=== PATIENT | female | born 1950 | race Caucasian/White ===

== ENCOUNTER → 2016-09-11 | Outpatient (CLI) | payer BC, MEDICARE | LOC: MW.CHFP 08:53 | PROVIDERS: ATTEND Family Medicine | DX: E66.9 Obesity, unspecified (principal); K59.09 Other constipation | CPT/HCPCS: 36415; 84443 ==

== ENCOUNTER 2018-02-22 08:03 | Observation (INO) | payer MEDICARE ==
[2018-02-22] MEDS ORDERED: Albuterol/Ipratropium 3.0-0.5 MG/3 ML Neb Soln NEB ONE (08:24)
[2018-02-22] MEDS ORDERED: Aspirin 81 MG Tab.Chew PO ONE (08:24)
[2018-02-22] MEDS ORDERED: methylPREDNISolone Sodium Succinate 125 MG/2 ML SDV IVPUSH ONE (08:24)
[2018-02-22] MEDS ORDERED: Albuterol/Ipratropium 3.0-0.5 MG/3 ML Neb Soln ONE (08:25)
--- NOTE | 2018-02-22 08:30 | EDM.PDOC ---
<Desi Reddy - Last Filed: 02/22/18 09:41> ED HPI GENERAL MEDICAL PROBLEM - General Chief Complaint: Respiratory Problem Stated Complaint: CHEST PAINS Time Seen by Provider: 02/22/18 08:09 - History of Present Illness INITIAL COMMENTS - FREE TEXT/NARRATIVE: HISTORY AND PHYSICAL: History of present illness: The patient is a 67-year-old female with past history of COPD who presents to the ER with shortness of breath for the past 2 weeks with associated cough, fever and chills. The patient has Symbicort and albuterol inhalers but does not take the Symbicort on a regular basis instead uses the albuterol multiple times a day. She's also been using nebulizer treatments as well, eight times a day. Also, for the past week she's had intermittent chest pain that she describes as sharp, jabbing that radiates to the left arm. These episodes last for minutes. She has taken nitroglycerin several times with relief. Her last nitroglycerin was this morning prior to arrival. She denies any history of VT. She is unsure why she was prescribed nitroglycerin. She didn't follow-up with the evaporator helper as recommended. [] Review of systems: As per history of present illness and below otherwise all systems reviewed and negative. Past medical history: As per history of present illness and as reviewed below otherwise noncontributory. Surgical history: As per history of present illness and as reviewed below otherwise noncontributory. Social history: No reported history of drug or alcohol abuse. Family history: As per history of present illness and as reviewed below otherwise noncontributory. Physical exam: HEENT: Atraumatic, normocephalic, pupils reactive, negative for conjunctival pallor or scleral icterus, mucous membranes moist, throat clear, neck supple, nontender, trachea midline. Lungs: expiratory wheezes throughout, breath sounds equal bilaterally, chest nontender. Heart: S1S2, regular, negative for clicks, rubs, or JVD. Abdomen: Soft, nondistended, nontender. Negative for masses or hepatosplenomegaly. Negative for costovertebral tenderness. Pelvis: Stable nontender. Genitourinary: Deferred. Rectal: Deferred. Extremities: Atraumatic, negative for cords or calf pain. Neurovascular unremarkable. Neuro: Awake, alert, oriented. Cranial nerves II through XII unremarkable. Cerebellum unremarkable. Motor and sensory unremarkable throughout. Exam nonfocal. Diagnostics: [CBC, CMP, troponin, BNP, EKG, chest x-ray] Therapeutics: [Aspirin, DuoNeb, Solu-Medrol, Zofran] Impression: [COPD exacerbation, chest pain] Plan: [Patient reports improvement of symptoms after duoneb treatment. Initial troponin was negative, no chest pain currently. Spoke to Dr. Kenny, hospitalist , who agreed with admission for observation and ACS rule out. Patient was agreeable to admission.] Definitive disposition and diagnosis as appropriate pending reevaluation and review of above. chest pain Pain Score (Numeric/FACES): 2 - Related Data Allergies Allergy/AdvReac Type Severity Reaction Status Date / Time citalopram hydrobromide Allergy Cannot Verified 02/22/18 08:14 [From Celexa] Remember codeine Allergy Vomiting Verified 02/22/18 08:14 duloxetine HCl Allergy Cannot Verified 02/22/18 08:14 [From Cymbalta] Remember Home Meds: Home Meds Benzonatate 100 mg PO TID 11/01/15 [History] Hydrocodone/Acetaminophen [Hydrocodon-Acetaminophn 10-325] 1 - 2 tab PO Q6H PRN 11/01/15 [History] Mometasone/Formoterol [Dulera 200-5 MCG] 2 puff IH BIDRT 11/01/15 [History] Pantoprazole Sodium 40 mg PO DAILY 11/01/15 [History] atorvaSTATin Calcium [Atorvastatin Calcium] 20 mg PO DAILY 11/01/15 [History] L. Acidophilus/Pectin, [place] [Acidophilus Probiotic] 1 cap PO BID 11/02/15 [ History] Albuterol/Ipratropium [DuoNeb 3.0-0.5 MG/3 ML] 3 ml NEB Q6H PRN #1 box 11/04/15 [Rx] Benzonatate [Tessalon Perles] 100 mg PO TID PRN #30 cap 11/04/15 [Rx] Levofloxacin 500 mg PO DAILY #5 tablet 11/04/15 [Rx] Prednisone [IJD: Prednisone] 10 - 40 mg PO DAILY #30 tab 11/04/15 [Rx] Albuterol [Ventolin 2 MG/5 ML] 0.4 mg PO Q4HR 10/02/18 [History] Budesonide/Formoterol Fumarate [Symbicort 160-4.5 Mcg Inhaler] 1 puff IH [History] Montelukast [Singulair] 10 mg PO DAILY 02/22/18 [History] Past Medical History Cardiovascular History: Reports: Angina Respiratory History: Reports: Asthma, Bronchitis, Recurrent, COPD, Pneumonia, Recurrent Musculoskeletal History: Reports: Fibromyalgia Other Musculoskeletal History: spinal scoliosis Oncologic (Cancer) History: Reports: Breast - Infectious Disease History Infectious Disease History: Reports: Chicken Pox, Measles, Mumps - Past Surgical History Cardiovascular Surgical History: Reports: None Respiratory Surgical History: Reports: None Female Surgical History: Reports: Section Oncologic Surgical History: Reports: Biopsy of Breast, Lumpectomy Social & Family History - Family History Family Medical History: Noncontributory - Tobacco Use Smoking Status *Q: Former Smoker Years of Tobacco use: 50 Packs/Tins Daily: 0.5 Used Tobacco, but Quit: Yes Month/Year Tobacco Last Used: 2016 - Caffeine Use Caffeine Use: Reports: None - Recreational Drug Use Recreational Drug Use: No ED ROS GENERAL - Review of Systems Review Of Systems: See Below (see dictation) ED EXAM, GENERAL - Physical Exam Exam: See Below (see dictation) Course - Vital Signs Last Recorded V/S: Last Vital Signs Temp 97.3 F 02/22/18 10:30 Pulse 79 02/22/18 10:30 Resp 20 02/22/18 10:30 BP 127/80 02/22/18 10:30 Pulse Ox 96 02/22/18 10:30 - Orders/Labs/Meds Orders: Active Orders 24 hr Category Date Time Status EKG Documentation Completion [RC] STAT Care 02/22/18 08:24 Active RT Aerosol Therapy [RC] ASDIRECTED Care 02/22/18 08:25 Active Medication Orders Albuterol/Ipratropium (Duoneb 3.0-0.5 Mg/3 Ml) 3 ml NEB Q4HRRT PRN PRN Reason: Shortness Of Breath/wheezing Enoxaparin Sodium (Lovenox) 40 mg SUBCUT Q24H GOMEZ Methylprednisolone Sodium Succinate (Solu-Medrol) 60 mg IV Q6H GMOEZ Polyethylene Glycol (Miralax) 17 gm PO DAILY PRN PRN Reason: Constipation Labs: Laboratory Tests 02/22/18 02/22/18 02/22/18 Range/Units 08:40 08:40 08:40 WBC 6.67 (4.0-11.0) K/uL RBC 4.55 (4.30-5.90) M/uL Hgb 13.5 (12.0-16.0) g/dL Hct 41.2 (36.0-46.0) % MCV 90.5 (80.0-98.0) fL MCH 29.7 (27.0-32.0) pg MCHC 32.8 (31.0-37.0) g/dL RDW Std Deviation 46.3 (28.0-62.0) fl RDW Coeff of Kushal 14 (11.0-15.0) % Plt Count 321 (150-400) K/uL MPV 9.70 (7.40-12.00) fL Neut % (Auto) 65.8 (48.0-80.0) % Lymph % (Auto) 20.1 (16.0-40.0) % [place] % (Auto) 6.7 (0.0-15.0) % Eos % (Auto) 6.7 (0.0-7.0) % Baso % (Auto) 0.7 (0.0-1.5) % Neut # (Auto) 4.4 (1.4-5.7) K/uL Lymph # (Auto) 1.3 (0.6-2.4) K/uL [place] # (Auto) 0.5 (0.0-0.8) K/uL Eos # (Auto) 0.5 (0.0-0.7) K/uL Baso # (Auto) 0.1 (0.0-0.1) K/uL Nucleated RBC % 0.0 /100WBC Nucleated RBCs # 0 K/uL Sodium 138 (136-145) mmol/L Potassium 4.2 (3.5-5.1) mmol/L Chloride 104 (98-107) mmol/L Carbon Dioxide 24.8 (21.0-32.0) mmol/L BUN 16 (7.0-18.0) mg/dL Creatinine 0.7 (0.6-1.0) mg/dL Est Cr Clr Drug Dosing 66.42 mL/min Estimated GFR (MDRD) > 60.0 ml/min Glucose 100 (74-106) mg/dL Calcium 9.1 (8.5-10.1) mg/dL Total Bilirubin 0.3 (0.2-1.0) mg/dL AST 16 (15-37) IU/L ALT 18 (14-63) IU/L Alkaline Phosphatase 91 (46-116) U/L Troponin I < 0.050 (0.000-0.056) ng/mL B-Natriuretic Peptide 40 (<100) PG/ML Total Protein 6.9 (6.4-8.2) g/dL Albumin 3.8 (3.4-5.0) g/dL Globulin 3.1 (2.0-3.5) g/dL Albumin/Globulin Ratio 1.2 L (1.3-2.8) Meds: Medications Generic Name Dose Route Start Last Admin Trade Name Freq PRN Reason Stop Dose Admin Albuterol/Ipratropium 3 ml 02/22/18 10:30 Duoneb 3.0-0.5 Mg/3 Ml NEB Q4HRRT PRN Shortness Of Breath/wheezing Enoxaparin Sodium 40 mg 02/22/18 10:30 Lovenox SUBCUT Q24H GOMEZ Methylprednisolone Sodium Succinate 60 mg 02/22/18 10:45 Solu-Medrol IV Q6H GOMEZ Polyethylene Glycol 17 gm 02/22/18 10:30 Miralax PO DAILY PRN Constipation Discontinued Medications Generic Name Dose Route Start Last Admin Trade Name Fito PRN Reason Stop Dose Admin Albuterol/Ipratropium 3 ml 02/22/18 08:24 02/22/18 08:28 Duoneb 3.0-0.5 Mg/3 Ml NEB 02/22/18 08:25 3 ml ONETIME ONE Administration Albuterol/Ipratropium Confirm 02/22/18 08:25 02/22/18 08:28 Duoneb 3.0-0.5 Mg/3 Ml Administered 02/22/18 08:26 Not Given Dose 3 ml .ROUTE .STK-MED ONE Aspirin 324 mg 02/22/18 08:24 02/22/18 08:44 Aspirin PO 02/22/18 08:25 324 mg ONETIME ONE Administration Azithromycin 500 mg 02/22/18 10:34 Zithromax PO 02/22/18 10:35 Q24H ONE Methylprednisolone Sodium Succinate 125 mg 02/22/18 08:24 02/22/18 08:44 Solu-Medrol IVPUSH 02/22/18 08:25 125 mg ONETIME ONE Administration Ondansetron HCl 4 mg 02/22/18 09:06 02/22/18 09:14 Zofran IVPUSH 02/22/18 09:07 4 mg ONETIME ONE Administration Departure - Departure Time of Disposition: 09:43 Disposition: Admitted As Inpatient 65 Condition: Good Clinical Impression: COPD exacerbation, Chest pain - Discharge Information *PRESCRIPTION DRUG MONITORING PROGRAM REVIEWED*: No *COPY OF PRESCRIPTION DRUG MONITORING REPORT IN PATIENT PAULO: No <Chhaya Long - Last Filed: 02/22/18 10:46> ED HPI GENERAL MEDICAL PROBLEM - History of Present Illness INITIAL COMMENTS - FREE TEXT/NARRATIVE: I reviewed this case with Dr. Reddy and agree with workup and management.
[2018-02-22] MEDS ORDERED: Ondansetron 4 MG/2 ML SDV IVPUSH ONE (09:06)
[2018-02-22 09:27] LABS: CHLORIDE,CL 104 mmol/L (98-107); SODIUM,NA 138 mmol/L (136-145)
--- NOTE | 2018-02-22 09:58 | CR ---
EXAMINATION: Portable chest radiograph. HISTORY: Shortness of breath. FINDINGS: The trachea is midline. The cardiomediastinal silhouette is within normal limits. No pulmonary infilt rates, effusions or pneumothorax. Calcified granuloma within the right apex. Osseous structures appear unremarkable. IMPRESSION: No acute cardiopulmonary process.
--- NOTE | 2018-02-22 10:24 | PCM.HP ---
H&P History of Present Illness - General Date of Service: 02/22/18 Admit Problem/Dx: Admission Diagnosis/Problem Admission Diagnosis/Problem COPD, Mild chronic obstructive pulmonary disease Source of Information: Patient History Limitations: Reports: No Limitations - History of Present Illness Initial Comments - Free Text/Narative: 67F with a history of Asthma/COPD, Angina of unknown significance, that presented to the ER today with a chief complaint of SOB, wheezing and chest tightness for the past 3 weeks. She says she has been having to use her nebulizer up to 8x/daily. Prior to this illness, she used her albuterol inhaler 4x/day. She has been prescribed spiriva but doesn't know what its for and uses it intermittently. She is also on singulair. Patient has had an issue with chest pain believed to be of cardiac origin for which she was referred to a diagnostic radiologist in [facility]. It was advised to her that she get some sort of "scan ", but the patient declined it secondary to cost. She has a prescription for nitroglycerin that she took last night for the pain, but otherwise doesnt use it. She endorses noticing swelling of the legs intermittently but not currently. She also endorses orthopnea. She endorses SOB on exertion but not chest pain. She denies active chest pain at the time of exam. chest pain Pain Score (Numeric/FACES): 2 - Related Data Allergies/Adverse Reactions: Allergies Allergy/AdvReac Type Severity Reaction Status Date / Time citalopram hydrobromide Allergy Cannot Verified 02/22/18 08:14 [From Celexa] Remember codeine Allergy Vomiting Verified 02/22/18 08:14 duloxetine HCl Allergy Cannot Verified 02/22/18 08:14 [From Cymbalta] Remember Home Medications: Home Meds Benzonatate 100 mg PO TID 11/01/15 [History] Hydrocodone/Acetaminophen [Hydrocodon-Acetaminophn 10-325] 1 - 2 tab PO Q6H PRN 11/01/15 [History] Mometasone/Formoterol [Dulera 200-5 MCG] 2 puff IH BIDRT 11/01/15 [History] Pantoprazole Sodium 40 mg PO DAILY 11/01/15 [History] atorvaSTATin Calcium [Atorvastatin Calcium] 20 mg PO DAILY 11/01/15 [History] L. Acidophilus/Pectin, [place] [Acidophilus Probiotic] 1 cap PO BID 11/02/15 [ History] Albuterol/Ipratropium [DuoNeb 3.0-0.5 MG/3 ML] 3 ml NEB Q6H PRN #1 box 11/04/15 [Rx] Benzonatate [Tessalon Perles] 100 mg PO TID PRN #30 cap 11/04/15 [Rx] Levofloxacin 500 mg PO DAILY #5 tablet 11/04/15 [Rx] Prednisone [IJD: Prednisone] 10 - 40 mg PO DAILY #30 tab 11/04/15 [Rx] Past Medical History Cardiovascular History: Reports: Angina Respiratory History: Reports: Asthma, Bronchitis, Recurrent, COPD, Pneumonia, Recurrent Musculoskeletal History: Reports: Fibromyalgia Other Musculoskeletal History: spinal scoliosis Oncologic (Cancer) History: Reports: Breast - Infectious Disease History Infectious Disease History: Reports: Chicken Pox, Measles, Mumps - Past Surgical History Cardiovascular Surgical History: Reports: None Respiratory Surgical History: Reports: None Female Surgical History: Reports: Section Oncologic Surgical History: Reports: Biopsy of Breast, Lumpectomy Social & Family History - Family History Family Medical History: Noncontributory - Tobacco Use Smoking Status *Q: Former Smoker Years of Tobacco use: 50 Packs/Tins Daily: 0.5 Used Tobacco, but Quit: Yes Month/Year Tobacco Last Used: 2016 - Caffeine Use Caffeine Use: Reports: None - Recreational Drug Use Recreational Drug Use: No H&P Review of Systems - Review of Systems: Review Of Systems: ROS reveals no pertinent complaints other than HPI. Exam - Exam Exam: See Below - Vital Signs Vital Signs: Last Vital Signs Temp 36.3 C 02/22/18 08:15 Pulse 107 H 02/22/18 08:15 Resp 16 02/22/18 08:15 BP 124/88 02/22/18 08:15 Pulse Ox 94 L 02/22/18 08:15 Weight: 89.2 kg - Exam General: Alert, Oriented, 4 HEENT: PERRLA, Hearing Intact, Mucosa Moist & E. Lopez, Nares Patent, Normal Nasal Septum, Posterior Pharynx Clear, Conjunctiva Clear, EOMI, EACs Clear, TMs Clear Neck: Supple, Trachea Midline, 2 Lungs: Normal Respiratory Effort, Wheezing. No: Crackles, Rales Cardiovascular: Regular Rate, Regular Rhythm GI/Abdominal Exam: Normal Bowel Sounds, Soft, Non-Tender, No Organomegaly, No Distention, No Abnormal Bruit, No Mass, Pelvis Stable Back Exam: Normal Inspection, Full Range of Motion, NT Extremities: Normal Inspection, Normal Range of Motion, Non-Tender, No Pedal Edema, Normal Capillary Refill. No: Pedal Edema Peripheral Pulses: 2+: Posterior Tibial (L), Posterior Tibial (R) Skin: Warm Neurological: Cranial Nerves Intact Neuro Extensive - Mental Status: Alert, Oriented x3 Neuro Extensive - Motor, Sensory, Reflexes: CN II-XII Intact DTR: 2+: Patella (L), Patella (R) Psychiatric: Alert, Normal Affect, Normal Mood - Patient Data Lab Results Last 24 hrs: Laboratory Results - last 24 hr 02/22/18 02/22/18 02/22/18 Range/Units 08:40 08:40 08:40 WBC 6.67 (4.0-11.0) K/uL RBC 4.55 (4.30-5.90) M/uL Hgb 13.5 (12.0-16.0) g/dL Hct 41.2 (36.0-46.0) % MCV 90.5 (80.0-98.0) fL MCH 29.7 (27.0-32.0) pg MCHC 32.8 (31.0-37.0) g/dL RDW Std Deviation 46.3 (28.0-62.0) fl RDW Coeff of Kushal 14 (11.0-15.0) % Plt Count 321 (150-400) K/uL MPV 9.70 (7.40-12.00) fL Neut % (Auto) 65.8 (48.0-80.0) % Lymph % (Auto) 20.1 (16.0-40.0) % [place] % (Auto) 6.7 (0.0-15.0) % Eos % (Auto) 6.7 (0.0-7.0) % Baso % (Auto) 0.7 (0.0-1.5) % Neut # (Auto) 4.4 (1.4-5.7) K/uL Lymph # (Auto) 1.3 (0.6-2.4) K/uL [place] # (Auto) 0.5 (0.0-0.8) K/uL Eos # (Auto) 0.5 (0.0-0.7) K/uL Baso # (Auto) 0.1 (0.0-0.1) K/uL Nucleated RBC % 0.0 /100WBC Nucleated RBCs # 0 K/uL Sodium 138 (136-145) mmol/L Potassium 4.2 (3.5-5.1) mmol/L Chloride 104 (98-107) mmol/L Carbon Dioxide 24.8 (21.0-32.0) mmol/L BUN 16 (7.0-18.0) mg/dL Creatinine 0.7 (0.6-1.0) mg/dL Est Cr Clr Drug Dosing 66.42 mL/min Estimated GFR (MDRD) > 60.0 ml/min Glucose 100 (74-106) mg/dL Calcium 9.1 (8.5-10.1) mg/dL Total Bilirubin 0.3 (0.2-1.0) mg/dL AST 16 (15-37) IU/L ALT 18 (14-63) IU/L Alkaline Phosphatase 91 (46-116) U/L Troponin I < 0.050 (0.000-0.056) ng/mL B-Natriuretic Peptide 40 (<100) PG/ML Total Protein 6.9 (6.4-8.2) g/dL Albumin 3.8 (3.4-5.0) g/dL Globulin 3.1 (2.0-3.5) g/dL Albumin/Globulin Ratio 1.2 L (1.3-2.8) Result Diagrams: 02/22/18 08:40 02/22/18 08:40 Problem List Initiated/Reviewed/Updated: Yes Orders Last 24hrs: Active Orders 24 hr Category Date Time Status Patient Status [ADT] Stat ADT 02/22/18 09:45 Active Cardiac Monitoring [RC] . DIRECTED Care 02/22/18 09:47 Active EKG Documentation Completion [RC] STAT Care 02/22/18 08:24 Active RT Aerosol Therapy [RC] ASDIRECTED Care 02/22/18 08:25 Active Assessment/Plan Comment:: Assessment: #1. COPD Exacerbation #2. ACS Rule out #3. History of asthma, COPD, angina, fibromyalgia Plan: #1. Admit to the floor for observation. Vital signs per floor routine. Titrate o2 as needed to maintain >88%. Cardiac telemetry. #2. Lovenox for DVT prophylaxis #3. Troponin q6h x2 more #4. Echocardiogram #5. DuoNeb q4h PRN SOB/Wheezing #6. Solumedrol 60mg IV q6h #7. Azithromycin PO 500mg daily #8. Will need to a follow up appointment with myself and a diagnostic radiologist upon discharge. Anticipate discharge 1-2 days.
[2018-02-22] MEDS ORDERED: Albuterol/Ipratropium 3.0-0.5 MG/3 ML Neb Soln NEB PRN (10:30)
[2018-02-22] MEDS ORDERED: Polyethylene Glycol 3350 Powder 17 GM Packet PO PRN (10:30)
[2018-02-22] MEDS ORDERED: Azithromycin 250 MG Tab PO ONE (10:34)
[2018-02-22] MEDS ORDERED: methylPREDNISolone Sodium Succinate 125 MG/2 ML SDV IV SCH (10:45)
[2018-02-22] MEDS: Enoxaparin 40 MG/0.4 ML Syringe SUBCUT SCH (11:37)
[2018-02-22] MEDS ORDERED: Calcium Carbonate 500 MG Tab.Chew PO PRN (15:36)
[2018-02-22] MEDS: methylPREDNISolone Sodium Succinate 125 MG/2 ML SDV IV SCH ×2 (15:48→20:24)
[2018-02-22] MEDS ORDERED: Acetaminophen/HYDROcodone 325-10 MG Tab PO PRN (18:22)
[2018-02-22] MEDS: Albuterol/Ipratropium 3.0-0.5 MG/3 ML Neb Soln NEB SCH (21:37)
[2018-02-22] MEDS ORDERED: Ondansetron 4 MG/2 ML SDV IVPUSH PRN (22:16)
[2018-02-22] MEDS ORDERED: Ibuprofen 400 MG Tab PO PRN (22:17)
[2018-02-23] MEDS: Albuterol/Ipratropium 3.0-0.5 MG/3 ML Neb Soln NEB SCH (02:44)
[2018-02-23] MEDS: methylPREDNISolone Sodium Succinate 125 MG/2 ML SDV IV SCH ×2 (02:46→07:53)
[2018-02-23 06:41] LABS: CHLORIDE,CL 106 mmol/L (98-107); SODIUM,NA 138 mmol/L (136-145)
[2018-02-23 07:56] VITALS: BP 114/67
[2018-02-23] MEDS: Enoxaparin 40 MG/0.4 ML Syringe SUBCUT SCH (10:00)
--- NOTE | 2018-02-23 10:26 | PCM.DCSUM1 ---
Discharge Summary - Hospital Course Free Text/Narrative:: Admission date: 02/22/2018 Discharge date: 02/23/2018 Admission dx: #1. Asthma exacerbation #2. ACS rule out #3. Cough, congestion #4. Hx of asthma, copd, fibromyalgia Discharge dx: #1. Asthma exacerbation - improved #2. ACS rule out - ruled out #3. Cough, congestion - improved #4. Hx of asthma, copd, fibromyalgia #5. Prediabetes Hospital course: 67F with the history mentioned above presented to the ER with a chief complaint of cough, congestion x1 month resulting in using her rescue inhaler upwards to 8x/day without success. CXR, labs were unremarkable. She was also complaining of intermittent chest pain she described as a tight band squeezing her chest across without radiation. troponin x3 trended were negative , no events on EKG. She did endorse orthopnea and SOB so I got an echocardiogram that appears to be unremarkable, EF >65-70%. She'll be discharged home on PO prednisone, azithromycin, tessalon perles, refilled on spiriva. Will obtain PFT as an outpatient. A1C 6.1% she was also found to be prediabetic. Will f/u with me in clinic. - Discharge Data Discharge Date: 02/23/18 Discharge Disposition: Home, Self-Care 01 Condition: Fair - Patient Instructions Diet: Usual Diet as Tolerated Activity: As Tolerated Driving: May Drive Today Notify Provider of: Fever, Increased Pain, Swelling and Redness, Drainage, Nausea and/or Vomiting - Discharge Plan *PRESCRIPTION DRUG MONITORING PROGRAM REVIEWED*: No *COPY OF PRESCRIPTION DRUG MONITORING REPORT IN PATIENT PAULO: No Prescriptions/Med Rec: Azithromycin 500 mg PO DAILY 2 Days #2 tablet Benzonatate [Tessalon Perle] 100 mg PO TID PRN #21 capsule PRN Reason: Cough predniSONE 40 mg PO WITHBREAKFAST 4 Days #8 tab Tiotropium [Spiriva] 1 puff INH DAILY #1 kit Home Medications: Home Meds Albuterol Sulfate [Proair Hfa] 1 - 2 inh IH Q4H PRN 02/22/18 [History] Albuterol/Ipratropium [DuoNeb 3.0-0.5 MG/3 ML] 3 ml INH QID PRN 02/22/18 [ History] DULoxetine [Cymbalta] 60 mg PO DAILY 02/22/18 [History] Hydrocodone/Acetaminophen [Hydrocodon-Acetaminophn 10-325] 1 tab PO QID PRN 07/11 [History] Montelukast [Singulair] 10 mg PO DAILY 02/22/18 [History] Nabumetone 1,000 mg PO DAILY 02/22/18 [History] Nitroglycerin [Nitrostat] 0.4 mg SL ASDIRECTED PRN MDD 3 02/22/18 [History] Pantoprazole [ProTONIX] 40 mg PO DAILY 02/22/18 [History] atorvaSTATin [Lipitor] 20 mg PO BEDTIME 02/22/18 [History] Azithromycin 500 mg PO DAILY 2 Days #2 tablet 02/23/18 [Rx] Benzonatate [Tessalon Perle] 100 mg PO TID PRN #21 capsule 02/23/18 [Rx] Tiotropium [Spiriva] 1 puff INH DAILY #1 kit 02/23/18 [Rx] predniSONE 40 mg PO WITHBREAKFAST 4 Days #8 tab 02/23/18 [Rx] Patient Handouts: Chronic Obstructive Pulmonary Disease Exacerbation, Easy-to- Read, Azithromycin tablets, Tiotropium respiratory inhalation spray (Spiriva Respimat), Prednisone tablets, Benzonatate capsules Referrals: Paul Esteves MD [Resident] - 03/08/18 2:30 pm - Patient Data Vitals - Most Recent: Last Vital Signs Temp 37.3 C 02/23/18 07:56 Pulse 78 02/23/18 04:00 Resp 20 02/23/18 07:56 BP 114/67 02/23/18 07:56 Pulse Ox 95 02/23/18 07:56 Weight - Most Recent: 88.723 kg I&O - Last 24 hours: Intake & Output 02/22/18 02/23/18 02/23/18 22:59 06:59 14:59 Intake Total 200 400 Output Total 100 450 Balance 100 -50 Lab Results - Last 24 hrs: Laboratory Results - last 24 hr 02/22/18 02/22/18 02/23/18 Range/Units 16:23 20:32 05:55 WBC 13.40 H (4.0-11.0) K/uL RBC 4.20 L (4.30-5.90) M/uL Hgb 12.4 (12.0-16.0) g/dL Hct 38.1 (36.0-46.0) % MCV 90.7 (80.0-98.0) fL MCH 29.5 (27.0-32.0) pg MCHC 32.5 (31.0-37.0) g/dL RDW Std Deviation 46.1 (28.0-62.0) fl RDW Coeff of Kushal 14 (11.0-15.0) % Plt Count 309 (150-400) K/uL MPV 10.00 (7.40-12.00) fL Nucleated RBC % 0.0 /100WBC Nucleated RBCs # 0 K/uL Sodium (136-145) mmol/L Potassium (3.5-5.1) mmol/L Chloride (98-107) mmol/L Carbon Dioxide (21.0-32.0) mmol/L BUN (7.0-18.0) mg/dL Creatinine (0.6-1.0) mg/dL Est Cr Clr Drug Dosing mL/min Estimated GFR (MDRD) ml/min Glucose (74-106) mg/dL Hemoglobin A1c (4.5-6.2) % Calcium (8.5-10.1) mg/dL Total Bilirubin (0.2-1.0) mg/dL AST (15-37) IU/L ALT (14-63) IU/L Alkaline Phosphatase (46-116) U/L Troponin I < 0.050 < 0.050 (0.000-0.056) ng/mL Total Protein (6.4-8.2) g/dL Albumin (3.4-5.0) g/dL Globulin (2.0-3.5) g/dL Albumin/Globulin Ratio (1.3-2.8) 02/23/18 02/23/18 Range/Units 05:55 06:08 WBC (4.0-11.0) K/uL RBC (4.30-5.90) M/uL Hgb (12.0-16.0) g/dL Hct (36.0-46.0) % MCV (80.0-98.0) fL MCH (27.0-32.0) pg MCHC (31.0-37.0) g/dL RDW Std Deviation (28.0-62.0) fl RDW Coeff of Kushal (11.0-15.0) % Plt Count (150-400) K/uL MPV (7.40-12.00) fL Nucleated RBC % /100WBC Nucleated RBCs # K/uL Sodium 138 (136-145) mmol/L Potassium 4.5 (3.5-5.1) mmol/L Chloride 106 (98-107) mmol/L Carbon Dioxide 23.1 (21.0-32.0) mmol/L BUN 18 (7.0-18.0) mg/dL Creatinine 0.8 (0.6-1.0) mg/dL Est Cr Clr Drug Dosing 58.12 mL/min Estimated GFR (MDRD) > 60.0 ml/min Glucose 159 H (74-106) mg/dL Hemoglobin A1c 6.1 (4.5-6.2) % Calcium 9.0 (8.5-10.1) mg/dL Total Bilirubin 0.2 (0.2-1.0) mg/dL AST 10 L (15-37) IU/L ALT 19 (14-63) IU/L Alkaline Phosphatase 79 (46-116) U/L Troponin I (0.000-0.056) ng/mL Total Protein 6.3 L (6.4-8.2) g/dL Albumin 3.4 (3.4-5.0) g/dL Globulin 2.9 (2.0-3.5) g/dL Albumin/Globulin Ratio 1.2 L (1.3-2.8) Med Orders - Current: Current Medications Hydrocodone Bitart/Acetaminophen ([place] 325-10 Mg) 1 tab PO QID PRN PRN Reason: PAIN Last Admin: 02/22/18 19:30 Dose: 1 tab Albuterol/Ipratropium (Duoneb 3.0-0.5 Mg/3 Ml) 3 ml NEB Q4HRRT PRN PRN Reason: Shortness Of Breath/wheezing Last Admin: 02/22/18 17:28 Dose: 3 ml Albuterol/Ipratropium (Duoneb 3.0-0.5 Mg/3 Ml) 3 ml NEB Q4HRRT GOMEZ Last Admin: 02/23/18 02:44 Dose: 3 ml Azithromycin (Zithromax) 500 mg PO Q24H [facility] Last Admin: 02/23/18 10:00 Dose: 500 mg Calcium Carbonate/Glycine (Tums) 500 mg PO TID PRN PRN Reason: Heartburn Last Admin: 02/22/18 15:48 Dose: 500 mg Enoxaparin Sodium (Lovenox) 40 mg SUBCUT Q24H GOMEZ Last Admin: 02/23/18 10:00 Dose: 40 mg Ibuprofen (Motrin) 400 mg PO Q8H PRN PRN Reason: Headache Methylprednisolone Sodium Succinate (Solu-Medrol) 60 mg IV Q6H [facility] Last Admin: 02/23/18 07:53 Dose: 60 mg Ondansetron HCl (Zofran) 4 mg IVPUSH Q3H PRN PRN Reason: Nausea/Vomiting Last Admin: 02/23/18 08:17 Dose: 4 mg Polyethylene Glycol (Miralax) 17 gm PO DAILY PRN PRN Reason: Constipation Discontinued Medications Albuterol/Ipratropium (Duoneb 3.0-0.5 Mg/3 Ml) 3 ml NEB ONETIME ONE Stop: 02/22/18 08:25 Last Admin: 02/22/18 08:28 Dose: 3 ml Albuterol/Ipratropium (Duoneb 3.0-0.5 Mg/3 Ml) Confirm Administered Dose 3 ml .ROUTE .STK-MED ONE Stop: 02/22/18 08:26 Last Admin: 02/22/18 08:28 Dose: Not Given Aspirin (Aspirin) 324 mg PO ONETIME ONE Stop: 02/22/18 08:25 Last Admin: 02/22/18 08:44 Dose: 324 mg Azithromycin (Zithromax) 500 mg PO Q24H ONE Stop: 02/22/18 10:35 Last Admin: 02/22/18 11:37 Dose: 500 mg Methylprednisolone Sodium Succinate (Solu-Medrol) 125 mg IVPUSH ONETIME ONE Stop: 02/22/18 08:25 Last Admin: 02/22/18 08:44 Dose: 125 mg Methylprednisolone Sodium Succinate (Solu-Medrol) 60 mg IV Q6H [facility] Last Admin: 02/22/18 11:45 Dose: Not Given Ondansetron HCl (Zofran) 4 mg IVPUSH ONETIME ONE Stop: 02/22/18 09:07 Last Admin: 02/22/18 09:14 Dose: 4 mg
[2018-02-23] MEDS ORDERED: Azithromycin 250 MG Tab PO SCH (10:30)
--- NOTE | 2018-02-24 13:43 | ECHO ---
EXAM DATE: 02/22/18 PATIENT'S AGE: 67 The echocardiogram report can be seen in this patient's EMR (Electronic Medical Record) in the Reports section. The report has also been scanned into PACs. YANE
== END 2018-02-23 11:18 | disposition home or self-care (01) ==
LOC: MW.ED 08:03 → MW.MS 09:45
PROVIDERS: ADMIT Internal Medicine; ATTEND Internal Medicine
DX: J44.1 Chronic obstructive pulmonary disease with (acute) exacerbation (principal); Z87.891 Personal history of nicotine dependence; Z79.899 Other long term (current) drug therapy; Z88.5 Allergy status to narcotic agent; Z88.8 Allergy status to other drugs, medicaments and biological substances
CPT/HCPCS: 36415; 71045; 80053; 83036; 83880; 84484; 85025; 85027; 93005; 93306; 94640; 96372; 96374; 96375; 96376; 99285; A9270; G0378; J1650; J2405; J2930; J7620-GY